=== PATIENT | male | born 1960 | race Caucasian/White ===

== ENCOUNTER 2016-11-19 21:05 | Day surgery (SDC) | payer BC ==
--- NOTE | 2016-11-19 21:42 | PDOC ---
History of Present Illness - General History Source: Family - History of Present Illness Initial Comments: 11/19/16 21:46 The patient is a 56 year old male, with a significant past medical history of type 2 diabetes, hypertension, diverticulitis, and herniated discs, who presents to the emergency department from [facility]. The patient is scheduled for surgery on Monday here at [facility]. The patient is currently sedated after pain medication was administered by [facility]. As per the patients son, he states that his father has been in bed for the last few days and it is very difficult for him to get out of bed due to excruciating pain. No history of urinary retention, incontinence, or constipation. Allergies: Iodine, Shellfish, CAT Scan Dye Past surgical history: Previous surgery for herniated disc Social history: Unknown if ever smoked Orthopedic Spine Surgeon: Dr. Vernon Thompson ([phone]) <Matilde Mcdaniels - Last Filed: 11/19/16 21:48> <Therese Romeo - Last Filed: 11/20/16 06:38> - General Chief Complaint: Back Pain Stated Complaint: BACK PAIN Time Seen by Provider: 11/19/16 21:07 Past History <Matilde Mcdaniels - Last Filed: 11/19/16 21:48> - Past Medical History Anemia: No Asthma: No Cancer: No Cardiac Disorders: No CVA: No COPD: No CHF: No Dementia: No Diabetes: Yes (1999) GI Disorders: No Disorders: No HTN: Yes Hypercholesterolemia: Yes Liver Disease: No Seizures: No Thyroid Disease: No Other medical history: HERNIATED DISC - Surgical History Abdominal Surgery: No Appendectomy: No Cardiac Surgery: No Cholecystectomy: No Lung Surgery: No Neurologic Surgery: No Orthopedic Surgery: Yes (BILA KNEE SURGERY 1997) - Psycho/Social/Smoking Cessation Hx Suicidal Ideation: No Smoking History: Unknown if ever smoked Have you smoked in the past 12 months: Yes Number of Cigarettes Smoked Daily: 3 Information on smoking cessation initiated: Yes 'Breaking Loose' booklet given: 11/17/16 Hx Alcohol Use: Yes (2 DAILY) Drug/Substance Use Hx: No Substance Use Type: Alcohol Hx Substance Use Treatment: No <Therese Romeo - Last Filed: 11/20/16 06:38> - Past Medical History Allergies/Adverse Reactions: Allergies Allergy/AdvReac Type Severity Reaction Status Date / Time iodine Allergy Verified 11/19/16 21:07 shellfish derived Allergy Verified 11/19/16 21:07 CAT SCAN DYE Allergy Severe Difficulty Uncoded 09/19/16 10:50 Breathing Home Medications: Ambulatory Orders Amlodipine Besylate 5 mg PO DAILY 09/16/16 Atorvastatin Ca [Lipitor] 10 mg PO HS 09/16/16 Ergocalciferol [Drisdol -] 50,000 unit PO WEEKLY 09/16/16 Glipizide [Glipizide Xl] 2.5 mg PO DAILY 09/16/16 Losartan/Hydrochlorothiazide [Losartan-Hctz 100-25 mg Tab] 1 each PO DAILY 09/16 Metformin HCl [Metformin HCl ER] 1,000 mg PO DAILY 09/16/16 Oxycodone HCl/Acetaminophen [Percocet 5-325 mg Tablet] 1 - 2 tab PO Q6H PRN #30 tab MDD 10 09/19/16 Cyclobenzaprine HCl [Flexeril -] 10 mg PO TID 11/17/16 Tramadol HCl [Ultram] 50 mg PO Q6H 11/17/16 Zolpidem Tartrate [Ambien] 5 mg PO HS 11/17/16 Review of Systems - Review of Systems Able to Perform ROS?: No (Patient is sedated) <Matilde Mcdaniels - Last Filed: 11/19/16 21:48> *Physical Exam - Vital Signs Last Vital Signs Temp Pulse Resp BP Pulse Ox 97.6 F 119 H 20 125/78 96 11/19/16 21:05 11/19/16 21:08 11/19/16 21:05 11/19/16 21:05 11/19/16 21:08 - Physical Exam Comments: 11/19/16 21:47 Unable to perform physical exam. <Matilde Mcdaniels - Last Filed: 11/19/16 21:48> - Vital Signs Last Vital Signs Temp Pulse Resp BP Pulse Ox 97.6 F 119 H 20 125/78 96 11/19/16 21:05 11/19/16 21:08 11/19/16 21:05 11/19/16 21:05 11/19/16 21:08 <Therese Romeo - Last Filed: 11/20/16 06:38> ED Treatment Course - LABORATORY CBC & Chemistry Diagram: 11/19/16 22:12 11/19/16 22:12 <Therese Romeo - Last Filed: 11/20/16 06:38> Progress Note - Progress Note Progress Note: Documentation has been prepared under my direction and personally reviewed by me in its entirety. I attest that this documented accurately reflects all work, treatment, procedures and medical decision making performed by me. As noted above, this 56-year-old man with a history of surgery for herniated disc 7 weeks ago and new lower back pain for the last 6 days, transferred here from [facility] ED (where he was taken by EMS although he had asked to be taken to this hospital). New level herniated disc diagnosed by and emergency back surgery scheduled for November [address] Lechuga. Patient however, has had persistent severe pain in the area of his lower back, with movement severely limited. Patient is also unable to sit secondary to the pain. No recent fall or other acute injury. Patient received 2 doses of Dilaudid 2 mg IV prior to transfer here to the emergency room and is currently heavily sedated although responsive. Vital signs as noted GENERAL: The patient is awake, responsive but groggy HEAD: Normal with no signs of trauma. EYES: Pupils equal, round and reactive to light, extraocular movements intact, sclera anicteric, conjunctiva clear with no pallor. ENT: moist mucous membranes. Ears normal, nares patent, oropharynx clear without exudates. NECK: Normal range of motion, supple without lymphadenopathy, JVD, or masses. LUNGS: Breath sounds equal, clear to auscultation bilaterally. No wheeze/ crackles HEART: Regular rate and rhythm, normal S1 and S2 without murmur or rub. ABDOMEN: Soft/nontender/nondistended. BS wnl. No guarding or rebound. No palpable masses. No hepatosplenomegaly. BACK: tenderness, right lower lumbar paraspinal area NEUROLOGICAL: Cranial nerves II through XII grossly intact. No focal deficit noted. Gait not tested SKIN: Warm, Dry, normal turgor, no rashes or lesions noted. Twelve-lead electrocardiogram is performed. This shows that sinus tachycardia 113 bpm; there are no acute ST or T-wave abnormalities; axis and intervals are normal Portable chest x-ray performed. This shows poor inspiratory effort but no gross evidence of infiltrates/effusions or other acute pulmonary process <Therese Romeo - Last Filed: 11/20/16 06:38> Medical Decision Making - Medical Decision Making 11/19/16 21:50 Dr Lechuga's service contacted Christel Blanco NP covering and will call back 11/19/16 22:05 Christel Blanco NP called back:she had heard from [facility] that patient was in ED. was notified and aware that patient would be transferred here. Ms. Blanco does not have admitting privileges here, and cannot write admitting orders Case discussed with FAHEEM Florez. [facility]. <Therese Romeo - Last Filed: 11/20/16 06:38> *DC/Admit/Observation/Transfer - Attestations Scribe Attestion: 11/19/16 21:47 Documentation prepared by LISANDRO Lancaster, acting as medical oncologist for Therese Romeo MD. <Matilde Mcdaniels - Last Filed: 11/19/16 21:48> - Discharge Dispostion Admit: Yes <Therese Romeo - Last Filed: 11/20/16 06:38> Diagnosis at time of Disposition: Intractable back pain Herniated disc Qualifiers: Spinal region: lumbar Qualified Code(s): M51.26 - Other intervertebral disc displacement, lumbar region - Discharge Dispostion Condition at time of disposition: Stable
[2016-11-19 22:33] LABS: BASOPHIL 0.3 % (0-2.0); MEAN PLT VOLUME 6.4 fl (7.5-11.1)
[2016-11-19 22:36] LABS: INR 1.07 (0.82-1.09); PROTHROMBIN TIME (PATIENT) 11.7 SEC (10.2-13.0)
[2016-11-19 22:38] LABS: EOSINOPHIL 0.3 % (0-4.5); MCH 30.9 pg (25.7-33.7); MCHC 33.5 g/dl (32.0-35.9); MEAN CELL VOLUME 92.2 fl (80-96); NEUTROPHILS 80.5 % (42.8-82.8); PLATELET COUNT 460 K/MM3 (134-434); RDW 11.9 % (11.9-15.9)
[2016-11-19 22:40] LABS: ALBUMIN 4.2 g/dl (3.5-5.0); BILIRUBIN,TOTAL 0.5 mg/dl (0.2-1.0); CALCIUM 8.9 mg/dl (8.4-10.2); CREATININE 2.1 mg/dl (0.6-1.3); TOT PROT 7.5 g/dl (6.4-8.3)
--- NOTE | 2016-11-19 23:38 | HP ---
CHIEF COMPLAINT: Back Pain PCP: HISTORY OF PRESENT ILLNESS: This is a 56 year old man with a past medical history of NIDDM, HTN, Diverticulitis, Herniated Discs. PSHx of: Spinal (7 weeks ago). Who presents to the emergency department from [facility] ED, scheduled for surgery on Monday with Dr. Vernon Lechuga. Unable to obtain HPI, patient is sedated from medications given at [facility]. Per ED records: As per the patient s son, he states that his father has been in bed for the last few days and it is very difficult for him to get out of bed due to excruciating pain. No history of urinary retention, incontinence, or constipation. ER course was notable for: (1) WBC 16 (2) Bun 29, Cr 2.1 (3) Glucose 299 Recent Travel: Unknown PAST MEDICAL HISTORY: See HPI PAST SURGICAL HISTORY: See HPI Social History: Smoking: Unknown Alcohol: Unknown Drugs: Unknown Family History: Unknown Allergies iodine Allergy (Verified 11/19/16 21:07) shellfish derived Allergy (Verified 11/19/16 21:07) CAT SCAN DYE Allergy (Severe, Uncoded 09/19/16 10:50) Difficulty Breathing HOME MEDICATIONS: Medication Instructions Recorded Amlodipine Besylate 5 mg PO DAILY 09/16/16 Atorvastatin Ca [Lipitor] 10 mg PO HS 09/16/16 Ergocalciferol [Drisdol -] 50,000 unit PO WEEKLY 09/16/16 Glipizide [Glipizide Xl] 2.5 mg PO DAILY 09/16/16 Losartan/Hydrochlorothiazide 1 each PO DAILY 09/16/16 [Losartan-Hctz 100-25 mg Tab] Metformin HCl [Metformin HCl ER] 1,000 mg PO DAILY 09/16/16 Oxycodone HCl/Acetaminophen 1 - 2 tab PO Q6H PRN #30 tab MDD 10 09/19/16 [Percocet 5-325 mg Tablet] Cyclobenzaprine HCl [Flexeril -] 10 mg PO TID 11/17/16 Tramadol HCl [Ultram] 50 mg PO Q6H 11/17/16 Zolpidem Tartrate [Ambien] 5 mg PO HS 11/17/16 REVIEW OF SYSTEMS Unable to obtain- sedated CONSTITUTIONAL: Absent: fever, chills, diaphoresis, generalized weakness, malaise, loss of appetite, weight change HEENT: Absent: rhinorrhea, nasal congestion, throat pain, throat swelling, difficulty swallowing, mouth swelling, ear pain, eye pain, visual changes CARDIOVASCULAR: Absent: chest pain, syncope, palpitations, irregular heart rate, lightheadedness , peripheral edema RESPIRATORY: Absent: cough, shortness of breath, dyspnea with exertion, orthopnea, wheezing, stridor, hemoptysis GASTROINTESTINAL: Absent: abdominal pain, abdominal distension, nausea, vomiting, diarrhea, constipation, melena, hematochezia GENITOURINARY: Absent: dysuria, frequency, urgency, hesitancy, hematuria, flank pain, genital pain MUSCULOSKELETAL: Absent: myalgia, arthralgia, joint swelling, back pain, neck pain SKIN: Absent: rash, itching, pallor HEMATOLOGIC/IMMUNOLOGIC: Absent: easy bleeding, easy bruising, lymphadenopathy, frequent infections ENDOCRINE: Absent: unexplained weight gain, unexplained weight loss, heat intolerance, cold intolerance NEUROLOGIC: Absent: headache, focal weakness or paresthesias, dizziness, unsteady gait, seizure, mental status changes, bladder or bowel incontinence PSYCHIATRIC: Absent: anxiety, depression, suicidal or homicidal ideation, hallucinations. PHYSICAL EXAMINATION Vital Signs - 24 hr 11/19/16 11/19/16 21:05 21:08 Temperature 97.6 F Pulse Rate 119 H 119 H Respiratory 20 Rate Blood Pressure 125/78 O2 Sat by Pulse 96 96 Oximetry (%) GENERAL: Asleep briefly arousable to deep tactile or verbal stimulation, in no acute distress. HEAD: Normal with no signs of trauma. EYES: Pupils equal, round and reactive to light, sclera anicteric, conjunctiva clear. No lid lag. EARS, NOSE, THROAT: Ears normal, nares patent, oropharynx clear without exudates. Moist mucous membranes. NECK: Normal range of motion, supple without lymphadenopathy, JVD, or masses. LUNGS: Breath sounds equal, clear to auscultation bilaterally. No wheezes, and no crackles. No accessory muscle use. HEART: Regular rate and rhythm, normal S1 and S2 without murmur, rub or gallop. ABDOMEN: Soft, nontender, not distended, normoactive bowel sounds, no guarding, no rebound, no masses. No hepatomegaly or splenomegaly. MUSCULOSKELETAL: Passive range of motion at all joints. No bony deformities or tenderness. No CVA tenderness. UPPER EXTREMITIES: 2+ pulses, warm, well-perfused. No cyanosis. No clubbing. Cap refill <2 seconds. No peripheral edema. LOWER EXTREMITIES: 2+ pulses, warm, well-perfused. No calf tenderness. No peripheral edema. NEUROLOGICAL: Cranial nerves II-XII intact. Normal speech. Gait not observed. PSYCHIATRIC: Cooperative. Normal Affect SKIN: Warm, dry, normal turgor, no rashes or lesions noted. Laboratory Results - last 24 hr 11/19/16 11/19/16 11/19/16 22:12 22:12 22:12 WBC 16.0 H RBC 5.01 Hgb 15.5 Hct 46.1 MCV 92.2 MCHC 33.5 RDW 11.9 Plt Count 460 H MPV 6.4 L Neutrophils % 80.5 Lymphocytes % 9.8 Monocytes % 9.1 Eosinophils % 0.3 Basophils % 0.3 INR 1.07 Sodium 133 L Potassium 4.3 Chloride 102 Carbon Dioxide 25 Anion Gap 6 L BUN 29 H Creatinine 2.1 H Creat Clearance w eGFR 32.60 Random Glucose 299 H Calcium 8.9 Total Bilirubin 0.5 AST 22 ALT 34 Alkaline Phosphatase 67 Total Protein 7.5 Albumin 4.2 ASSESSMENT/PLAN: This is a 56 year old man with a PMHx of: NIDDM, HTN, Diverticulitis, Herniated Discs. Who presents to the ED from [facility] ED scheduled for lumbar surgery on Monday here at [facility]. Placed on Observation for Intractable Back Pain with herniated discs for further evaluation of their emergent condition. Plan: 1. Intractable Back Pain - Likely secondary to disc herniation - Appreciate Ortho Consult - Patient is scheduled for elective surgery on Monday - Dilaudid 3mg, Benadryl 25mg given at [facility] ED - Will hold off on narcotics for now, patient is currently sedated. - Tele monitoring until sedation wears off - Gentle IVF - Monitor CBC, BMP 2. BALDO on CKD - Baseline Cr unknown - Gentle IVF - Monitor renal function - Avoid nephro toxic agents 3. NIDDM - Uncontrolled - BGMs - ISS - Hold Metformin, Glipizide 2/ BALDO 4. F/E/N - NS@60ml/hr - Replete lytes prn - NPO 5. DVT Prophylaxis - OOB - SCDs - Consider AC if LOS > 48hrs Problem List - Problem (1) Herniated disc Code(s): [id number] - Qualifiers: Spinal region: lumbar Qualified Code(s): M51.26 - Other intervertebral disc displacement, lumbar region (2) Intractable back pain Code(s): M54.9 - DORSALGIA, UNSPECIFIED (3) HTN (hypertension) Code(s): I10 - ESSENTIAL (PRIMARY) HYPERTENSION (4) Non-insulin treated type 2 diabetes mellitus Code(s): E11.9 - TYPE 2 DIABETES MELLITUS WITHOUT COMPLICATIONS (5) Diverticulitis Code(s): K57.92 - DVTRCLI OF INTEST, PART UNSP, W/O PERF OR ABSCESS W/O BLEED (6) DVT prophylaxis Code(s): TRJ2088 - Visit type - Emergency Visit Emergency Visit: Yes ED Registration Date: 11/19/16 Care time: The patient presented to the Emergency Department on the above date and was hospitalized for further evaluation of their emergent condition. - New Patient This patient is new to me today: Yes Date on this admission: 11/19/16 - Critical Care Critical Care patient: No
[2016-11-19] MEDS ORDERED: SODIUM CHLORIDE 1,000 ML IV SCH (23:45)
[2016-11-20 01:00] VITALS: BMI 32.3
[2016-11-20] MEDS ORDERED: ACETAMINOPHEN 1000 MG/100 ML VIAL (NON FORMULARY) IVPB ONE (04:46)
[2016-11-20] MEDS ORDERED: INSULIN (NOVOLOG) ASPART 100 UNITS/ML 10ML VIAL ONE ×3 (07:08→16:43)
[2016-11-20] MEDS: INSULIN SLIDING SCALE (NOVOLOG) 1 VIAL SQ SCH ×3 (07:26→16:44)
[2016-11-20 08:12] LABS: URINE APPEARANCE CLEAR; URINE BILIRUBIN NEGATIVE (NEGATIVE); URINE COLOR YELLOW; URINE GLUCOSE (UA) 3+ (NEGATIVE); URINE KETONE NEGATIVE (NEGATIVE); URINE LEUK ESTERASE NEGATIVE (NEGATIVE); URINE NITRITE NEGATIVE (NEGATIVE); URINE UROBILINOGEN NEGATIVE E.U./dl (0.2-1.0)
[2016-11-20 08:20] LABS: MCHC 35.6 g/dl (32.0-35.9); MEAN CELL VOLUME 92.6 fl (80-96); RDW 12.7 % (11.9-15.9); WHITE BLOOD COUNT 10.9 K/mm3 (4.0-10.0)
[2016-11-20 08:21] LABS: BASOPHIL 0.5 % (0-2.0); EOSINOPHIL 0.2 % (0-4.5); MEAN PLT VOLUME 6.7 fl (7.5-11.1); PLATELET COUNT 277 K/MM3 (134-434)
[2016-11-20 08:25] LABS: URINE BLOOD 2+ (NEGATIVE); URINE PROTEIN 1+ (NEGATIVE)
[2016-11-20 08:27] LABS: CALCIUM 8.2 mg/dL (8.5-10.1)
[2016-11-20 08:30] LABS: CREATININE 1.7 mg/dL (0.7-1.3)
[2016-11-20 08:38] LABS: URINE BACTERIA RARE /hpf (NONE SEEN); URINE HYALINE CAST 12 /lpf; URINE MUCUS RARE; URINE RBC 1 /hpf (0-3); URINE WBC 1 /hpf (3-5)
[2016-11-20] MEDS ORDERED: diazePAM CARPU-JECT 10 MG/2 ML DISP.SYRIN IVPUSH ONE (09:44)
[2016-11-20] MEDS: HYDROmorphone HCL CARPU-JECT 1 MG/1 ML DISP.SYRIN IVPUSH PRN ×3 (09:55→19:40)
--- NOTE | 2016-11-20 09:58 | PN ---
Physical Exam: SUBJECTIVE: Patient seen and examined at bedside. Complaining of severe back pain radiating down right leg. Admits to drinking tequila and beer (3 shots/2 beers) three times per week. Last drink 6 days ago. OBJECTIVE: Vital Signs Period Temp Pulse Resp BP Sys/Gibbs Pulse Ox Last 24 Hr 97.9 F 65 17-18 156/63 94-94 GENERAL: The patient is awake, alert, and fully oriented. In moderate distress. Irritable, verbally abusive to staff. HEAD: Normal with no signs of trauma. EYES: PERRL, extraocular movements intact, sclera anicteric, conjunctiva clear. No ptosis. LUNGS: Breath sounds equal, clear to auscultation bilaterally, no wheezes, no crackles, no accessory muscle use. HEART: Regular rate and rhythm, S1, S2 without murmur, rub or gallop. ABDOMEN: Soft, nontender, nondistended, normoactive bowel sounds, no guarding, no rebound EXTREMITIES: 2+ pulses, warm, well-perfused, no edema. Moving both legs freely. 5/5 motor, 5/5 sensory. NEUROLOGICAL: Cranial nerves II through XII grossly intact. Normal speech, gait not observed. Laboratory Results - last 24 hr 11/20/16 11/20/16 11/20/16 05:02 06:00 06:00 WBC 10.9 H Corrected WBC (auto) 10.90 RBC 4.25 Hgb 14.0 Hct 39.3 MCV 92.6 MCHC 35.6 RDW 12.7 Plt Count 277 MPV 6.7 L Neutrophils % 80.0 Lymphocytes % 10.1 Monocytes % 9.2 Eosinophils % 0.2 Basophils % 0.5 Sodium 137 Potassium 4.3 Chloride 103 Carbon Dioxide 25 Anion Gap 9 BUN 34 H Creatinine 1.7 H POC Glucometer Random Glucose 282 H Calcium 8.2 L Urine Color Yellow Urine Appearance Clear Urine pH 5.0 Ur Specific [place] 1.023 Urine Protein 1+ H Urine Glucose (UA) 3+ H Urine Ketones Negative Urine Blood 2+ H Urine Nitrite Negative Urine Bilirubin Negative Urine Urobilinogen Negative Ur Leukocyte Esterase Negative Urine RBC 1 Urine WBC 1 Urine Bacteria Rare Hyaline Casts 12 Urine Mucus Rare Current Medications Generic Name Dose Route Start Last Admin Trade Name Freq PRN Reason Stop Dose Admin Amlodipine Besylate 5 mg 11/20/16 10:00 Norvasc - PO DAILY ROBIN Hydromorphone HCl 2 mg 11/20/16 09:45 11/20/16 09:55 Dilaudid Injection - IVPUSH 2 mg Q4H PRN Administration PAIN Sodium Chloride 1,000 mls @ 1,000 mls/hr 11/20/16 10:06 11/20/16 10:10 Normal Saline - IV 11/20/16 11:05 1,000 mls/hr ASDIR STA Administration Sodium Chloride 1,000 mls @ 125 mls/hr 11/20/16 10:08 11/20/16 10:09 Normal Saline - IV 125 mls/hr ASDIR ROBIN Administration Insulin Aspart 1 vial 11/20/16 07:00 11/20/16 07:26 Novolog Vial Sliding Scale - SQ 8 units ACHS ROBIN Administration Protocol Lorazepam 1 mg 11/20/16 16:00 Ativan - PO Q6H PRN ASSESSMENT/PLAN: 56 year-old man with a PMH HTN, NIDDM, diverticulitis, and herniated discs s/p L4-S1 laminectomy 09/19/16 (Kenrick Lance), admitted for herniated discs with severe right-sided radiculopathy and pain management. Surgery scheduled . Herniated discs lumbar/sacral spine --discussed with Dr. Lance, surgery scheduled for tomorrow for herniations that occurred post-surgery in August --dilaudid PRN for pain management; gave one dose of valium but patient did not like feeling, felt he was hallucinating Acute kidney injury --Cr 2.1 on admission, now 1.7; baseline unknown --bolus NS x 1L now, then 125mL/hr --hold Losartan/HCTZ home med Hypertension --continue amlodipine Alcohol abuse --admits to 3 shots tequila and 2 beers three times per week; states last drink was 6 days ago --monitor for s/s of withdrawal NIDDM --Novolog sliding scale coverage F/E/N Fluids: NS @ 125/hr Electrolytes: replete as indicated Nutrition: diabetic diet DVT prophylaxis: hold chemical anticoagulation due to surgery tomorrow; SCDs on left leg Dispo: patient placed on observation status, discussed with case management; make ASU or admit tomorrow; Full Code. Visit type - Emergency Visit Emergency Visit: Yes ED Registration Date: 11/19/16 Care time: The patient presented to the Emergency Department on the above date and was hospitalized for further evaluation of their emergent condition. - New Patient This patient is new to me today: Yes Date on this admission: 11/20/16 - Critical Care Critical Care patient: No
[2016-11-20] MEDS ORDERED: SODIUM CHLORIDE 1,000 ML IV SCH (10:00)
[2016-11-20] MEDS ORDERED: LOSARTAN 50MG/HCTZ 12.5MG 1 TAB (FP) PO SCH (10:00)
[2016-11-20] MEDS ORDERED: SODIUM CHLORIDE 1,000 ML IV STA (10:06)
[2016-11-20] MEDS: SODIUM CHLORIDE 1,000 ML IV SCH (10:09)
[2016-11-20] MEDS: amLODIPine BESYLATE 5 MG TABLET (FP) PO SCH (11:00)
[2016-11-20 12:46] LABS: MAGNESIUM 2.2 mg/dL (1.8-2.4)
[2016-11-20] MEDS ORDERED: LORazepam 1 MG TABLET PO PRN (16:00)
--- NOTE | 2016-11-20 23:25 | EKG ---
Test Reason : Blood Pressure : / mmHG Vent. Rate : 113 BPM Atrial Rate : 113 BPM P-R Int : 136 ms QRS Dur : 102 ms QT Int : 350 ms P-R-T Axes : 031 -13 -06 degrees QTc Int : 480 ms SINUS TACHYCARDIA MODERATE VOLTAGE CRITERIA FOR LVH, MAY BE NORMAL VARIANT BORDERLINE ECG NO PREVIOUS ECGS AVAILABLE Confirmed by ROGERIO HARRIS, SEJAL ([id number]) on 11/20/2016 11:25:11 PM Referred By: KATLYN MARIE Confirmed By:SEJAL BEATTY MD
[2016-11-21] MEDS: HYDROmorphone HCL CARPU-JECT 1 MG/1 ML DISP.SYRIN IVPUSH PRN ×5 (00:19→14:45)
[2016-11-21] MEDS: INSULIN SLIDING SCALE (NOVOLOG) 1 VIAL SQ SCH ×4 (06:40→22:25)
--- NOTE | 2016-11-21 08:32 | PN ---
[id number] is located in the right hip posteriorly and comes to the back of his thigh and around. This am he says that he voided but feels like he didn't evacuate his bladder completely. Bladder scan checked and volume was 82. Vital Signs Period Temp Pulse Resp BP Sys/Gibbs Pulse Ox Last 24 Hr 98 F-98.3 F 78-93 19-20 135-153/65-77 95-100 PE: GEN: Alert and oriented x3, NAD ABD: soft, slight low abd pain with palpation. LE: no calf tenderrness or swelling noted b/l. dorsi/plantar/EHL 5/5 b/l. CBC, BMP 11/21/16 07:51 11/21/16 07:51 <Joan Wright - Last Filed: 11/21/16 10:55> - Note Progress Note: Patient seen and examined Agree with Above Events of weekend noted Patient admitted for pain control Will plan for Revision Laminectomy <Vernon Lechuga - Last Filed: 12/08/16 11:29> Problem List - Problems (1) Intractable back pain Assessment/Plan: Pt for surgery today, He is s/p L4-S1 laminectomy on 09/19 now for decompression of L3-S1 Continue npo/IV hydration Code(s): M54.9 - DORSALGIA, UNSPECIFIED <Joan Wright - Last Filed: 11/21/16 10:55>
[2016-11-21 08:58] LABS: CO2 25 mmol/L (22-28); CREATININE 0.7 mg/dl (0.6-1.3); GLUCOSE,RANDOM 214 mg/dl (74-106)
[2016-11-21 08:59] LABS: ALBUMIN 3.3 g/dl (3.5-5.0); ALK PHOS 58 U/L (32-92); ANION GAP 5 (8-16); BILIRUBIN,TOTAL 1.1 mg/dl (0.2-1.0); CALCIUM 8.3 mg/dl (8.4-10.2); MAGNESIUM 1.8 mg/dL (1.8-2.4); SGOT/AST 50 U/L (10-42); SGPT/ALT 42 U/L (10-40); TOT PROT 5.8 g/dl (6.4-8.3)
[2016-11-21 09:01] LABS: BASOPHIL 0.5 % (0-2.0); EOSINOPHIL 1.4 % (0-4.5); MCHC 33.4 g/dl (32.0-35.9); MEAN CELL VOLUME 92.6 fl (80-96); MEAN PLT VOLUME 6.6 fl (7.5-11.1); NEUTROPHILS 75.5 % (42.8-82.8); PLATELET COUNT 263 K/MM3 (134-434); RDW 11.8 % (11.9-15.9); WHITE BLOOD COUNT 8.8 K/mm3 (4.0-10.0)
[2016-11-21] MEDS: amLODIPine BESYLATE 5 MG TABLET (FP) PO SCH (09:14)
[2016-11-21] MEDS: SODIUM CHLORIDE 1,000 ML IV SCH (09:15)
[2016-11-21] MEDS ORDERED: HYDROmorphone HCL CARPU-JECT 1 MG/1 ML DISP.SYRIN IVPUSH ONE (09:40)
[2016-11-21] MEDS ORDERED: HYDROmorphone HCL CARPU-JECT 2 MG/1 ML DISP.SYRIN ONE (09:43)
[2016-11-21] MEDS ORDERED: PT OWN MED DRAWER 7, Y5N ONE ×2 (10:11→15:49)
[2016-11-21] MEDS ORDERED: BUPIVACAINE HCL/PF 2.5 MG/ML - 30 ML VIAL IJ ONE (10:26)
[2016-11-21] MEDS ORDERED: methylPREDNISolone ACET (DEPO) 40 MG/1 ML VIAL ONE (10:26)
[2016-11-21] MEDS ORDERED: PROPOFOL 20 ML ONE ×2 (10:49→13:26)
[2016-11-21] MEDS ORDERED: ROCURONIUM BROMIDE 50 MG/5 ML VIAL ONE (10:49)
[2016-11-21] MEDS ORDERED: MIDAZOLAM HCL 2 MG/2 ML SINGLE DOSE VIAL ONE ×2 (10:49)
[2016-11-21] MEDS ORDERED: LIDOCAINE 1%/EPI 1:100000 (50 ML MULTI DOSE VIAL) INF ONE (11:00)
[2016-11-21] MEDS ORDERED: ceFAZolin SODIUM 1 GM VIAL ONE (11:25)
[2016-11-21] MEDS ORDERED: BUPIVACAINE HCL/PF 0.25% (2.5MG/ML) 10 ML VIAL IJ ONE (13:08)
[2016-11-21] MEDS ORDERED: THROMBIN (BOVINE) 5,000 UNIT VIAL TP ONE (13:08)
[2016-11-21] MEDS ORDERED: methylPREDNISolone ACET (DEPO) 40 MG/1 ML VIAL IM ONE (13:09)
[2016-11-21] MEDS ORDERED: ACETAMINOPHEN 1000 MG/100 ML VIAL (NON FORMULARY) IVPB ONE (13:55)
[2016-11-21] MEDS ORDERED: LACTATED RINGERS SOLUTION 1,000 ML IV SCH (14:00)
[2016-11-21] MEDS ORDERED: oxyCODONE HCL 5 MG TABLET PO PRN (14:06)
[2016-11-21] MEDS ORDERED: HYDROmorphone HCL CARPU-JECT 1 MG/1 ML DISP.SYRIN IVPB PRN (14:09)
--- NOTE | 2016-11-21 14:13 | OP ---
Operative Note - Note: Operative Date: 11/21/16 Pre-Operative Diagnosis: spinal stenosis Operation: L3-S1 laminectomy Post-Operative Diagnosis: Same as Pre-op Surgeon: Vernon Lechuga Interventional Tech: Joan Wright Anesthesiologist/WELLNESS NURSE RN: Sharmila Fleming Anesthesia: General Specimens Removed: L4-L5 lamina Estimated Blood Loss (mls): 30 Fluid Volume Replaced (mls): 1,300 Operative Report Dictated: Yes
--- NOTE | 2016-11-21 14:14 | SURG ---
Surgery Barber Stylist Note Barber Stylist: Joan Wright PA-C Date of Service: 11/21/16 Diagnosis: spinal stenosis Procedure: L3-S1 laminectomy I was present for the entirety of the operative procedure. For further detail, please refer to operative report. Visit type - Case Type Case Type: ED Admission - Emergency Emergency Visit: Yes ED Registration Date: 11/19/16 Care time: The patient presented to the Emergency Department on the above date and was hospitalized for further evaluation of their emergent condition. - Critical Care Critical Care patient: No
[2016-11-21] MEDS ORDERED: ONDANSETRON 4 MG/2 ML VIAL IVPUSH PRN (14:29)
[2016-11-21] MEDS: oxyCODONE HCL 5 MG TABLET PO PRN (16:36)
[2016-11-21] MEDS: CEFAZOLIN 1 GM/D5W 50 ML IVPB SCH (20:45)
[2016-11-21] MEDS: ACETAMINOPHEN 1000 MG/100 ML VIAL (NON FORMULARY) IVPB SCH (20:46)
[2016-11-22] MEDS: ACETAMINOPHEN 1000 MG/100 ML VIAL (NON FORMULARY) IVPB SCH (02:00)
[2016-11-22] MEDS ORDERED: TAMSULOSIN HCL 0.4 MG CAP.ER.24H (FP) PO ONE (02:22)
[2016-11-22] MEDS: oxyCODONE HCL 5 MG TABLET PO PRN ×2 (02:40→10:17)
[2016-11-22] MEDS: CEFAZOLIN 1 GM/D5W 50 ML IVPB SCH (03:25)
[2016-11-22] MEDS: INSULIN SLIDING SCALE (NOVOLOG) 1 VIAL SQ SCH (06:42)
[2016-11-22] MEDS ORDERED: DOCUSATE SODIUM 100 MG CAPSULE (FP) PO PRN (09:07)
--- NOTE | 2016-11-22 09:07 | PN ---
Progress Note (short form) - Note Progress Note: Pt seen by myself and Dr. Lechuga. He states that the pain in his right leg is improved, he continue to have numbness in the top of his right foot. Overnight the patient developed lower abd discomfort and urinary retention. He had voided approx 100ml in the pacu and then 300ml, a bladder scan overnight revealed 200ml and then a leslie was placed and 850 ml was returned. He tolerated a regular diet and is passing flatus. Last BM two days ago. He denies any dysuria earlier in the day, now wishes to have the leslie cathter removed. He has been oob and ambuating overnight. Vital Signs Period Temp Pulse Resp BP Sys/Gibbs Pulse Ox Last 24 Hr 97.8 F-98.6 F 77-107 16-24 121-172/76-100 91-100 uop-150/300(voided) leslie 850ml clear/yellow urine GEN: PE: A&0 x3, NAD CV: RRR Lungs: CTA b/l, anteriorly/posteriorly ABD: Soft, non-distended,non-tender Back: Dressing c/d/i, no masses, small amount of ecchymosis on superior aspect(1 /2cm) above dressing edge. LE: No calf tenderness or swelling noted b/l, SCDs in place. Dorsi/plantar flexion 5/5 b/l. Right EHL 4/5, left 5/5 EHL. <Joan Wright - Last Filed: 11/24/16 18:56> - Note Progress Note: Patient seen and examined Agree with above Patient no longer has pain down his legs PT Ambulate D/C Planning <Vernon Lechuga - Last Filed: 12/08/16 11:30> Problem List - Problems (1) Intractable back pain Assessment/Plan: s/p Laminectomy Of L3-S1, patient with improved RLE pain symptoms. Post- operatively he had urinary retention and a leslie catheter was placed. Pt seen with Dr. Lechuga, will continue flomax and remove leslie for TOV today. After voids, check bladder scan for post-residual volume. Oral pain medicaations with oxycodone/tylenol. DVT ppx with SCDs/ambulation. Physical therpay consult placed. For possible dishcarge today after PT eval, passes trial of void. Code(s): M54.9 - DORSALGIA, UNSPECIFIED <Joan Wright - Last Filed: 11/24/16 18:56>
[2016-11-22] MEDS ORDERED: ACETAMINOPHEN 325 MG TABLET (FP) PO PRN (09:13)
[2016-11-22] MEDS ORDERED: glipiZIDE-XL 2.5 MG TAB.ER.24 PO SCH (10:00)
[2016-11-22] MEDS ORDERED: DOCUSATE SODIUM 100 MG CAPSULE (FP) PO SCH (10:00)
[2016-11-22] MEDS ORDERED: LOSARTAN 50MG/HCTZ 12.5MG 1 TAB (FP) PO SCH (10:00)
[2016-11-22] MEDS ORDERED: PATIENT'S OWN MEDICATION (NON-FORMULARY) (Losartan/Hydrochlorothiazide [Losartan-Hctz 100- PO SCH (10:00)
[2016-11-22] MEDS: amLODIPine BESYLATE 5 MG TABLET (FP) PO SCH (10:19)
[2016-11-22] MEDS ORDERED: MAGNESIUM HYDROX 2400MG/30ML ORAL SUSPENSION 30 ML CUP PO ONE (13:33)
[2016-11-22 14:18] VITALS: BP 151/85; PULSE 95; TEMP 98.9
--- NOTE | 2016-11-22 14:56 | PN ---
Progress Note (short form) - Note Progress Note: 56M POD1 s/p lumbar laminectomy L4-5-S1 under GA-ETT. Pt states pain is well controlled, AVSS, reports no anesthetic complications. Sensory and motor function in b/l lower extremities at baseline.
[2016-11-22] MEDS ORDERED: TAMSULOSIN HCL 0.4 MG CAP.ER.24H (FP) PO SCH (22:00)
--- NOTE | 2016-11-23 13:20 | PATH ---
Surgical Pathology Report Patient Name: SARAY ARZATE Med. Rec. #: [id number] /Age/Gender: 1960 (Age: 56) / M Account: [id number] Location: [facility] MED-SURG Taken: 11/21/2016 Received: 11/21/2016 Reported: 11/23/2016 Physicians: Vernon Lechuga M.D. Specimen(s) Received L4-5 DISC Clinical History Spinal stenosis Final Diagnosis INTERVERTEBRAL DISC, L4-5, DISCECTOMY: CARTILAGE WITH DEGENERATIVE CHANGES. Electronically Signed Raymundo Kraft M.D. Gross Description Received in formalin, labeled "L4-5 disc" is a 1.2 cm in greatest dimension coates fragment of fibrocartilaginous tissue. The specimen is submitted in toto in one cassette. 11/22/201611/22/2016
--- NOTE | 2016-12-08 13:13 | DS ---
[id number] to have numbness in the top of his right foot. Overnight the patient developed lower abd discomfort and urinary retention. He had voided approx 100ml in the pacu and then 300ml, a bladder scan overnight revealed 200ml and then a leslie was placed and 850 ml was returned. He tolerated a regular diet and is passing flatus. Last BM two days ago. He denies any dysuria earlier in the day, now wishes to have the leslie cathter removed. He has been oob and ambuating overnight. Vital Signs Period Temp Pulse Resp BP Sys/Gibbs Pulse Ox Last 24 Hr 97.8 F-98.6 F 77-107 16-24 121-172/76-100 91-100 uop-150/300(voided) leslie 850ml clear/yellow urine GEN: PE: A&0 x3, NAD CV: RRR Lungs: CTA b/l, anteriorly/posteriorly ABD: Soft, non-distended,non-tender Back: Dressing c/d/i, no masses, small amount of ecchymosis on superior aspect(1 /2cm) above dressing edge. LE: No calf tenderness or swelling noted b/l, SCDs in place. Dorsi/plantar flexion 5/5 b/l. Right EHL 4/5, left 5/5 EHL. <Joan Wright - Last Filed: 11/24/16 18:56> LABS CBC,CMP WBC 8.8 K/mm3 (4.0-10.0) D 11/21/16 07:51 Corrected WBC (auto) 10.90 K/mm3 11/20/16 06:00 RBC 3.98 M/mm3 (4.00-5.60) L D 11/21/16 07:51 Hgb 12.3 GM/dl (11.7-16.9) D 11/21/16 07:51 Hct 36.8 % (35.4-49) D 11/21/16 07:51 MCV 92.6 fl (80-96) 11/21/16 07:51 MCHC 33.4 g/dl (32.0-35.9) 11/21/16 07:51 RDW 11.8 % (11.9-15.9) L 11/21/16 07:51 Plt Count 263 K/MM3 (134-434) D 11/21/16 07:51 MPV 6.6 fl (7.5-11.1) L 11/21/16 07:51 Neutrophils % 75.5 % (42.8-82.8) 11/21/16 07:51 Lymphocytes % 14.8 % (8-40) D 11/21/16 07:51 Monocytes % 7.8 % (3.8-10.2) 11/21/16 07:51 Eosinophils % 1.4 % (0-4.5) D 11/21/16 07:51 Basophils % 0.5 % (0-2.0) 11/21/16 07:51 Sodium 136 mmol/L (136-145) 11/21/16 07:51 Potassium 4.1 mmol/L (3.5-5.1) 11/21/16 07:51 Chloride 106 mmol/L (98-107) 11/21/16 07:51 Carbon Dioxide 25 mmol/L (22-28) 11/21/16 07:51 Anion Gap 5 (8-16) L 11/21/16 07:51 BUN 19 mg/dl (7-18) H D 11/21/16 07:51 Creatinine 0.7 mg/dl (0.6-1.3) D 11/21/16 07:51 Creat Clearance w eGFR > 60 (>60) 11/21/16 07:51 POC Glucometer 184 UNITS (()) 11/22/16 11:55 Random Glucose 214 mg/dl (74-106) H D 11/21/16 07:51 Calcium 8.3 mg/dl (8.4-10.2) L 11/21/16 07:51 Magnesium 1.8 mg/dL (1.8-2.4) 11/21/16 07:51 Total Bilirubin 1.1 mg/dl (0.2-1.0) H D 11/21/16 07:51 AST 50 U/L (10-42) H D 11/21/16 07:51 ALT 42 U/L (10-40) H D 11/21/16 07:51 Alkaline Phosphatase 58 U/L (32-92) 11/21/16 07:51 Total Protein 5.8 g/dl (6.4-8.3) L D 11/21/16 07:51 Albumin 3.3 g/dl (3.5-5.0) L D 11/21/16 07:51 HOSPITAL COURSE: Date of Admission:11/21/16 Date of Discharge: 12/08/16 The patient was admitted by the medical team prior to his elective surgery for an acute increase in back pain. He was transferred from [place] [facility] to [facility] for acute onset of back pain. He was s/p laminectomy L4-S1 [address] Lechuga. The patient was taken to the OR for a laminectomy of L3- S1. After surgery, the patient was admitted to the Med-Surg Unit and transferred to the surgical service. The day of surgery, the patient ambulated the hallways with assistance. Narcotic and non-narcotic pain management control was achieved with an oral and IV approach. POD #1, the surgical drain was removed fully intact and without incident. Francoise-operative IV ABX were administered. DVT prophylaxis was achieved with SCDs and early ambulation. The patient ambulated with Physical Therapy and no services were recommended upon discharge. Narcotic scripts and or muscle relaxants were checked with [facility] [employer] prior to escibe. The discharge instructions and an oral pain management plan were reviewed with the patient. All questions answered. Above plan discussed with Dr. Lechuga and agreed. Minutes to complete discharge: 20 <Joan Wright - Last Filed: 12/08/16 13:20> Physical Exam: SUBJECTIVE: Patient seen and examined OBJECTIVE: Vital Signs Temperature 98.9 F 11/22/16 14:17 Pulse Rate 95 H 11/22/16 14:17 Respiratory Rate 18 11/22/16 14:17 Blood Pressure 151/85 11/22/16 14:17 O2 Sat by Pulse Oximetry (%) 93 L 11/22/16 14:17 PHYSICAL EXAM GENERAL: The patient is awake, alert, and fully oriented, in no acute distress. HEAD: Normal with no signs of trauma. EYES: PERRL, extraocular movements intact, sclera anicteric, conjunctiva clear. ENT: Ears normal, nares patent, oropharynx clear without exudates, moist mucous membranes. NECK: Trachea midline, full range of motion, supple. LUNGS: Breath sounds equal, clear to auscultation bilaterally, no wheezes, no crackles, no accessory muscle use. HEART: Regular rate and rhythm, S1, S2 without murmur, rub or gallop. ABDOMEN: Soft, nontender, nondistended, normoactive bowel sounds, no guarding, no rebound, no hepatosplenomegaly, no masses. EXTREMITIES: 2+ pulses, warm, well-perfused, no edema. NEUROLOGICAL: Cranial nerves II through XII grossly intact. Normal speech, gait not observed. PSYCH: Normal mood, normal affect. SKIN: Warm, dry, normal turgor, no rashes or lesions noted. LABS CBC,CMP WBC 8.8 K/mm3 (4.0-10.0) D 11/21/16 07:51 Corrected WBC (auto) 10.90 K/mm3 11/20/16 06:00 RBC 3.98 M/mm3 (4.00-5.60) L D 11/21/16 07:51 Hgb 12.3 GM/dl (11.7-16.9) D 11/21/16 07:51 Hct 36.8 % (35.4-49) D 11/21/16 07:51 MCV 92.6 fl (80-96) 11/21/16 07:51 MCHC 33.4 g/dl (32.0-35.9) 11/21/16 07:51 RDW 11.8 % (11.9-15.9) L 11/21/16 07:51 Plt Count 263 K/MM3 (134-434) D 11/21/16 07:51 MPV 6.6 fl (7.5-11.1) L 11/21/16 07:51 Neutrophils % 75.5 % (42.8-82.8) 11/21/16 07:51 Lymphocytes % 14.8 % (8-40) D 11/21/16 07:51 Monocytes % 7.8 % (3.8-10.2) 11/21/16 07:51 Eosinophils % 1.4 % (0-4.5) D 11/21/16 07:51 Basophils % 0.5 % (0-2.0) 11/21/16 07:51 Sodium 136 mmol/L (136-145) 11/21/16 07:51 Potassium 4.1 mmol/L (3.5-5.1) 11/21/16 07:51 Chloride 106 mmol/L (98-107) 11/21/16 07:51 Carbon Dioxide 25 mmol/L (22-28) 11/21/16 07:51 Anion Gap 5 (8-16) L 11/21/16 07:51 BUN 19 mg/dl (7-18) H D 11/21/16 07:51 Creatinine 0.7 mg/dl (0.6-1.3) D 11/21/16 07:51 Creat Clearance w eGFR > 60 (>60) 11/21/16 07:51 POC Glucometer 184 UNITS (()) 11/22/16 11:55 Random Glucose 214 mg/dl (74-106) H D 11/21/16 07:51 Calcium 8.3 mg/dl (8.4-10.2) L 11/21/16 07:51 Magnesium 1.8 mg/dL (1.8-2.4) 11/21/16 07:51 Total Bilirubin 1.1 mg/dl (0.2-1.0) H D 11/21/16 07:51 AST 50 U/L (10-42) H D 11/21/16 07:51 ALT 42 U/L (10-40) H D 11/21/16 07:51 Alkaline Phosphatase 58 U/L (32-92) 11/21/16 07:51 Total Protein 5.8 g/dl (6.4-8.3) L D 11/21/16 07:51 Albumin 3.3 g/dl (3.5-5.0) L D 11/21/16 07:51 HOSPITAL COURSE: Date of Admission:11/21/16 Date of Discharge: 12/12/16 The patient was admitted to the Med-Surg Unit after an elective repair of their (problem). Now, s/p ( procedure ). The day of surgery, the patient ambulated the hallways with assistance. Narcotic and non-narcotic pain management control was achieved with an oral and IV approach. POD #1, the surgical drain was removed fully intact and without incident. An xray was obtained and confirmed hardware placement at (level of ), no fractures or dislocations. Francoise-operative IV ABX were administered. DVT prophylaxis was achieved with SCDs and early ambulation. The patient ambulated with Physical Therapy and no services were recommended upon discharge. Narcotic scripts and or muscle relaxants were checked with [facility] prior to escibe. The discharge instructions and an oral pain management plan were reviewed with the patient. All questions answered. Above plan discussed with Dr. Lechuga and agreed. Patient seen and examined Agree with Above Patient states that his pain is improved D/C Planning <Vernon Lechuga - Last Filed: 12/12/16 10:09> Visit type - Case Type Case Type: ED Admission - Emergency Emergency Visit: Yes Care time: The patient presented to the Emergency Department on the above date and was hospitalized for further evaluation of their emergent condition. - New patient This patient is new to me today: No - Critical Care Critical Care patient: No <Joan Wright - Last Filed: 12/08/16 13:20>
--- NOTE | 2017-03-13 16:25 | OP ---
DATE OF OPERATION: 11/21/2016 PREOPERATIVE DIAGNOSIS: Spinal stenosis. POSTOPERATIVE DIAGNOSIS: Spinal stenosis. PROCEDURE PERFORMED: Laminectomy, L3-4, L4-5, L5-S1. SURGEON: Vernon Lechuga M.D. [employer]OT [employer] EQUIPMENT OPERATOR: Reyna Camargo ESTIMATED BLOOD LOSS: 50 mL ANESTHESIA: General. COMPLICATIONS: There were none. DISPOSITION: Patient brought to the PACU in stable condition. INDICATION FOR SURGERY: The patient is a 56-year-old gentleman whom I had performed a laminectomy on. He had done well with the surgery, but then recently began to have increasing pain from his back down his leg. X-rays and MRI were completed which noted that he had a re-herniation at L4-5. We had tried multiple different forms of treatment for this, but the patient had a significant amount of pain. He is admitted to the hospital where workup revealed that he had a re-herniation. At this point I had a discussion with him about possible surgical options including revision laminectomy. The patient understood and consented to surgery. OPERATIVE NOTE: Patient is brought to the operating room by the anesthesia staff. After appropriate patient identification is performed, general anesthesia was administered. The patient was placed prone onto the [place] frame with all areas of bony prominences well padded at this time. The C-arm was brought in, and the L3-S1 disk spaces were marked off. Then 10 mL of lidocaine with epinephrine was injected into his back at this time. His back was prepped and draped in a sterile manner. At this point, a timeout was completed. An incision was made over his previous excision from L3 down to S1 as the previous incision was opened up. The C-arm was brought in, the L3-4 level was marked off. At this point a complete decompression was performed and a disk herniation was noted at L4-5. It was removed. By the end of the procedure, all nerve roots were decompressed. All bleeding was well controlled at this time. Steroids were placed over the nerve root. Floseal was placed over that. The fascia was closed with a number 1 Vicryl suture. The subcutaneous tissue was closed with 2-0 Vicryl suture. Skin was closed with 3-0 Monocryl suture. Dermabond was applied. Steri-Strips were applied. Sterile dressing was applied. Patient was placed supine on the OR bed, x-rayed in the OR and brought to the PACU in stable condition. Jose Armando FRANKEL/[id number]
== END 2016-11-22 17:05 | disposition home or self-care (01) ==
LOC: FER 21:05 → UNDOADMOB 23:41 → FM/S 23:41 → UNDOADMOB 23:56 → FM/S 23:56 → FER 11-20 00:11 → FASUSAT 11-21 13:58 → FM/S 11-21 13:58 → FASUSAT 11-22 15:25 → FM/S 11-22 15:26 → FASUSAT 11-22 17:05
PROVIDERS: ATTEND Internal Medicine
PROC: 01NB0ZZ Release Lumbar Nerve, Open Approach (ICD-10-PCS; principal; 2016-11-21 11:00)
DX: M48.07 Spinal stenosis, lumbosacral region (principal); E11.9 Type 2 diabetes mellitus without complications; I10 Essential (primary) hypertension
CPT/HCPCS: 36415; 71010-TC; 72100-TC; 76000-TC; 80048; 80053; 81003; 81015; 83735; 85025; 85610; 86850; 86900; 86901; 88304-TC; 93005; 94760; 97116-GP; 97162-PG; 99285-25